=== PATIENT | male | born 1955 | race Caucasian/White ===

== ENCOUNTER 2017-02-08 19:39 | Inpatient (IN) | payer OTHER ==
[~2017-02-08] VITALS: Ht 167.6 cm; Wt 66.7 kg
--- NOTE | ~2017-02-08 | CNG ---
[facility] [place] [address] CYTO-NONGYN REPORT PROCEDURE Name: MARY NAVARRO Room #: 236-P ADM IN M.R.#: [id number] Admission: 02/08/17 Date of : 55 Discharge: Report #: [id number] Path Case #: [id number] CYTOPATHOLOGY REPORT COLLECTION DATE: 02/10/2017 RECEIVED DATE: 02/10/2017 SUBMITTING PHYS: Dr. Mago Jolly OTHER PHYS: Dr. Suman Friend CLINICAL HISTORY: Complete heart block, Alveolar hemorrhage. SPECIMEN(S) RECEIVED: A.Bronchoalveolar lavage, RML B.Bronchoalveolar lavage, Lingula * * * * * * * * * * * * FINAL DIAGNOSIS: A. Lung, RML, Bronchoalveolar lavage: - No malignant cells identified. - Few bronchial epithelial cells, alveolar macrophages, and squamous cells present. B. Lung, Lingula, Bronchoalveolar lavage: - No malignant cells identified. - Clusters of bronchial epithelial cells, alveolar macrophages, and squamous cells present. PATHOLOGIST: Giovana Lemons M.D. REPORT ELECTRONICALLY SIGNED BY: Giovana Lemons M.D. DATE/TIME: 02/11/2017 15:01 * * * * * * * * * * * * GROSS PATHOLOGY: A. Bronchoalveolar lavage, RML: The specimen is submitted unfixed, labeled "Mary Navarro". Received by the Cytology Department is 3 mL of cloudy fluid. One ThinPrep slide was prepared. B. Bronchoalveolar lavage, Lingula: The specimen is submitted unfixed, labeled "Mary Navarro". Received by the Cytology Department is 2 mL of cloudy fluid. One ThinPrep slide was prepared. (clt 02.10.2017) FINANCIAL ANALYST ACCOUNTANT(S): DYLAN Colon(ASCP)IAC INITIAL CPT CODE(S): A; 04498 B; 21536 Professional [facility] performed by [facility] at [address], [place] [address] [place] [address] CYTO-NONGYN REPORT PROCEDURE Name: MARY NAVARRO Room #: 236-P ADM IN M.R.#: [id number] Admission: 02/08/17 Date of : 55 Discharge: Report #: [id number] Path Case #: [id number] Technical services performed by [facility] at [address] [place] [address]., [address], [place] [address]. [address], [facility] [address] [place] [address] PHONE: [phone] DIRECTOR: Kevin Gannon M.D. * * * END OF REPORT * * *
--- NOTE | ~2017-02-08 | CATHLAB ---
[facility] [address] [address] INVASIVE PROCEDURE REPORT Name: MARY NAVARRO Room #: 236-P [facility] IN ..#: [id number] Admission: 02/08/17 Attend Phys: Altagracia Friend Discharge: Date of : 55 Date of Service: 02/09/17 0157 Report #: [id number] THIS REPORT FOR: //name// CC: Demetri Jolly DATE OF SERVICE: 02/08/2017 INDICATION: A 61-year-old male patient with congestive heart failure and complete heart block with bradycardia. PROCEDURES: Temporary transvenous pacemaker insertion under fluoroscopic visualization. MANAGER ENVIRONMENTAL: Demetri Salcedo M.D. BRIEF DESCRIPTION OF PROCEDURE: After informed consent was obtained from the family, the patient was brought to the cardiac catheterization laboratory in stable condition. He was intubated and respiratory was on hand managing ventilator. The right groin was prepped and draped in the usual sterile manner. Utilizing technique after instillation of local in the entry point, the right femoral vein was accessed and an 8-Danish sheath was positioned in place. A 5-Danish balloon tip and venous pacer wire was then advanced under fluoroscopic visualization into the right ventricular apex. Enough slack was placed on it to secure its location. At this point in time, thresholds were obtained with a captured threshold at 0.6 volts. Sheath was sewn in place, OpSite placed to secure it in position. Fluoroscopy was then performed to document positioning. OpSite was then utilized to secure device further. FINAL SETTINGS: 1. demand mode. 2. Heart rate of 80. 3. MA 5 volts. 4. Rhythm post-insertion: 100% V paced. <ELECTRONICALLY SIGNED> By: Demetri Salcedo MD 02/09/17 1642 0157 1235 Demetri Salcedo MD /nt
--- NOTE | ~2017-02-08 | EKG ---
[address] [address] ELECTROCARDIOGRAM REPORT Name: MARY NAVARRO Room #: 236-[facility] IN M.R.#: [id number] Admission: 02/08/17 Attend Phys: Altagracia Friend MD Discharge: 02/12/17 Date of : 55 Report #: [id number] THIS REPORT FOR: //name// [facility] Test Date: 2017-02-12 Test Time: 07:40:02 Pat Name: MARY NAVARRO Department: Room: 236 Gender: M Customs Guard: anat : 1955 Requested By: Larry Suarez Order Number: [id number] MD: Jean Chacon Measurements Intervals [place] Rate: 61 P: 91 UT: 244 QRS: 52 QRSD: 164 T: -52 QT: 482 QTc: 486 Interpretive Statements Sinus rhythm with first degree AV block Left bundle branch block No further analysis attempted due to paced rhythm Compared to ECG 02/08/2017 19:52:43 AV block, complete (third-degree) no longer present Electronically Signed On 02-13-2017 14:59:19 CDT by Jean Chacon [email or web address] <ELECTRONICALLY SIGNED> By: Jean Chacon MD, [facility] 02/13/17 1459 0740 Jean Chacon MD, [facility] /EPI
--- NOTE | ~2017-02-08 | 2DMMODE ---
[facility] [address] [place] [address] 2 D/M-MODE ECHOCARDIOGRAM Name: MARY NAVARRO Room #: 236-P ADM IN .R.#: [id number] Admission: 02/08/17 Attend Phys: Suman Kelly, Discharge: Date of : 55 Date of Service: 02/09/17 0008 Report #: [id number] THIS REPORT FOR: //name// APPROVED REPORT Study performed: 02/08/2017 23:28:24 EXAM: Limited 2D, Doppler, and color-flow Echocardiogram Patient Location: ER Room #: 7/Call back/STAT HR: 33 bpm Rhythm: Heart block Other Information Study Quality: Adequate Indications Limited echo. Heart block. Short of air. Rule out pericardial effusion. Tricuspid Valve TR Peak Masoud.: 4.31 m/s RAP Estimate: 10.00 mmHg TR Peak Gr.: 74.29 mmHg RVSP: 84.00 mmHg Left Ventricle The left ventricle is normal size. There is normal LV segmental wall motion. There is normal left ventricular wall thickness. Left ventricular systolic function is normal. LVEF is 55-60%. Right Ventricle Right ventricle is difficult to assess. Aortic Valve The aortic valve is normal in structure. Trace aortic regurgitation. Mitral Valve The mitral valve is normal in structure. Moderate mitral regurgitation. Tricuspid Valve The tricuspid valve is normal in structure. There is moderate tricuspid regurgitation. The right atrial pressure is estimated at 10 [facility] [address] [place] [address] 2 D/M-MODE ECHOCARDIOGRAM Name: MARY NAVARRO Room #: 236-P ADM IN M.R.#: [id number] Admission: 02/08/17 Attend Phys: Suman Kelly, Discharge: Date of : 55 Date of Service: 02/09/177 Report #: [id number]. There is severe pulmonary hypertension with an estimated PAP of 84mmHg. Great Vessels IVC is dilated and collapses <50% with inspiration. Pericardium There is no pericardial effusion. <Conclusion> The left ventricle is normal size. LVEF is 55-60%. Right ventricle is difficult to assess. The aortic valve is normal in structure. Trace aortic regurgitation. The mitral valve is normal in structure. The tricuspid valve is normal in structure. There is moderate tricuspid regurgitation. The right atrial pressure is estimated at 10 mmHg. There is severe pulmonary hypertension with an estimated PAP of 84mmHg. <ELECTRONICALLY SIGNED> By: Demetri Salcedo MD 02/09/177 Demetri Salcedo MD /INF
--- NOTE | ~2017-02-08 | CATHLAB ---
[facility] [address] [place] [address] INVASIVE PROCEDURE REPORT Name: MARY NAVARRO Room #: 236-P [facility] IN [facility]#: [id number] Admission: 02/08/17 Attend Phys: Altagracia Friend Discharge: 02/12/17 Date of : 55 Date of Service: 02/14/17 1015 Report #: [id number] THIS REPORT FOR: //name// CC: Demetri Jolly DATE OF SERVICE: 02/11/2017 PERMANENT PACEMAKER IMPLANTATION REPORT INDICATIONS: A 61-year-old male patient with complete heart block and symptoms of fatigue, tiredness and congestive heart failure. PROCEDURES: 1. Implantation of [employer] dual-chamber pacemaker. (Serial number identified in the catheterization report). 2. Supervision of conscious sedation. ASSOCIATE PROFESSOR OF PATHOLOGY: Demetri Salcedo M.D. DESCRIPTION OF PROCEDURE: After informed consent was obtained, the patient was brought to the cardiac catheterization laboratory in stable condition. The chest was prepped and draped in usual sterile manner. Under continuous electrocardiographic and oximetric monitoring, the patient was sedated with 4 Versed and 25 of Demerol. An incision was then carried forth with an 11 blade and a pocket was developed with both sharp and blunt dissection. Cauterization was utilized to deal with bleeders. Once the pocket was developed a subclavian vein access was obtained via single stick methods. Sheaths were placed, leads were advanced. Subsequent to this, the sheaths were removed and anchoring sutures were placed. The leads were then positioned in the left ventricular septum where capture and sensing thresholds were verified and were excellent. The atrial lead was then placed in the right atrial appendage and both leads were screwed in. Capture and sensing threshold in the atrium was excellent with arteries greater than 2. The device was then connected pocket device. Chest was irrigated with antibiotic solution. Closure then ensued with a running locking nonabsorbable suture for the 2 deep fascial layers and the skin was closed with a 3-0 absorbable running subcuticular stitch. Steri-Strips, 4 x 4's Op-Site were then placed. The patient tolerated the procedure well. There were no complications. <ELECTRONICALLY SIGNED> By: Demetri Salcedo MD 02/15/17 1258 1015 2311 Demetri Salcedo MD /nt
--- NOTE | ~2017-02-08 | EKG ---
[address] [address] ELECTROCARDIOGRAM REPORT Name: MELANIEMARY Room #: 236-P ADM IN M.R.#: [id number] Admission: 02/08/17 Attend Phys: Altagracia Friend MD Discharge: Date of : 55 Report #: [id number] THIS REPORT FOR: //name// [facility] ED Test Date: 2017-02-08 Test Time: 19:52:43 Pat Name: MARY NAVARRO Department: Room: 236 Gender: M [employer] Department Chair: CORDELL : 1955 Requested By: Megan Mccann Order Number: [id number] MD: Jean Chacon Measurements Intervals [place] Rate: 42 P: 0 ME: QRS: -35 QRSD: 152 T: 61 QT: 602 QTc: 504 Interpretive Statements Complete AV block with wide QRS complex Left bundle branch block No previous ECG available for comparison Electronically Signed On 02-09-2017 9:24:38 CDT by Jean Chacon [email or web address] <ELECTRONICALLY SIGNED> By: Jean Chacon MD, [facility] 02/09/17923 51 51 Jean Chacon MD, FACC /EPI
[2017-02-08 19:47] VITALS: BP 157/48
[2017-02-08] MEDS ORDERED: calcium complete (20:05)
[2017-02-08] MEDS ORDERED: CENTRUM SILVER1 EAC2 PO (20:05)
[2017-02-08] MEDS ORDERED: ZINC 15 MG LOZE15 MG (20:05)
[2017-02-08] MEDS ORDERED: ASPIR 8181 MG PO (20:05)
[2017-02-08] MEDS ORDERED: [UNRECOGNIZED DRUG - OTHER] (20:06)
[2017-02-08] MEDS ORDERED: OMEGA-31000 M1 PO (20:06)
[2017-02-08] MEDS ORDERED: LIPITOR10 MG PO (20:07)
[2017-02-08 20:31] LABS: ANION GAP 12 mmol/L (7-16); BUN 22 mg/dL (7-18); CALCIUM 8.6 mg/dL (8.5-10.1); CHLORIDE 102 mmol/L (98-107); CO2 24 mmol/L (21-32); CREATININE 1.3 mg/dL (0.7-1.3); GLUCOSE 116 mg/dL (74-106); POTASSIUM 4.4 mmol/L (3.5-5.1); SODIUM 138 mmol/L (136-145)
[2017-02-08 20:34] LABS: ABSOLUTE NEUTROPHILS 9.3 thou/uL (1.4-8.2); BASOPHILS 0.4 % (0.0-2.0); HEMOGLOBIN 13.7 gm/dL (14.0-18.0); MCH 30.7 pg (26.0-34.0); MCHC 33.5 g/dL (28.0-37.0); MCV 91.6 fL (80.0-100.0); MONOCYTES 7.3 % (1.0-8.0); POLYS 78.3 % (36.0-66.0); RBC 4.48 mil/uL (4.50-6.00); RDW 13.4 % (10.5-14.5); WBC 11.9 thou/uL (4.0-11.0)
[2017-02-08 20:44] LABS: MAGNESIUM 1.7 mg/dL (1.8-2.4); NT-PRO BRAIN NAT PEPTIDE 5138 pg/mL (<300); TROPONIN-I < 0.04 ng/mL (<0.04-0.07)
[2017-02-08 20:48] LABS: MANUAL DIFF NO
[2017-02-08 22:16] LABS: ABG SAMPLE TYPE ARTERIAL; BE(vivo) -5.1 mmol/L (-2 to +3); HCO3 17.8 mmol/L (22.0-26.0); LACTATE 2.16 mmol/L (0.5-2.0); O2Hb 90.9 % (92.0-98.0); PCO2 27.5 mmHg (35.0-45.0); PO2 63.7 mmHg (80.0-100.0); pH 7.428 (7.360-7.450); sO2 93.3 % (92.0-98.0); tCO2 18.6 mmol/L (24.0-30.0)
[2017-02-08 22:18] LABS: STICK SITE R.RADIAL
[2017-02-08 22:25] LABS: APTT 26.9 Seconds (24.5-32.8); INR 1.1; PROTIME 11.9 Seconds (9.3-11.4)
[2017-02-08 22:50] LABS: PLATELET COUNT 131 thou/uL (150-400)
[2017-02-08 22:51] LABS: LARGE PLATELETS OCCASIONAL; POLYCHROMASIA OCCASIONAL
[2017-02-08 23:48] VITALS: BP 96/24
[2017-02-09] VITALS (57 sets, daily range): BP systolic 81–156; BP diastolic 16–90
[2017-02-09 03:45] LABS: ABSOLUTE NEUTROPHILS 6.1 thou/uL (1.4-8.2); BASOPHILS 0.3 % (0.0-2.0); EOSINOPHILS 0.4 % (0.0-3.0); HEMATOCRIT 37.8 % (42.0-52.0); HEMOGLOBIN 12.9 gm/dL (14.0-18.0); LYMPHOCYTES 17.6 % (24.0-44.0); MCH 31.4 pg (26.0-34.0); MCHC 34.2 g/dL (28.0-37.0); MCV 91.6 fL (80.0-100.0); MONOCYTES 10.7 % (1.0-8.0); PLATELET COUNT 113 thou/uL (150-400); RBC 4.12 mil/uL (4.50-6.00); RDW 13.4 % (10.5-14.5); WBC 8.6 thou/uL (4.0-11.0)
[2017-02-09 03:56] LABS: MANUAL DIFF NO
[2017-02-09 04:14] LABS: ALBUMIN 2.7 g/dL (3.4-5.0); ALKALINE PHOSPHATASE 71 U/L (46-116); ANION GAP 12 mmol/L (7-16); BUN 22 mg/dL (7-18); CALCIUM 7.9 mg/dL (8.5-10.1); CHLORIDE 106 mmol/L (98-107); CHOLESTEROL 123 mg/dL (<200); CO2 22 mmol/L (21-32); CREATININE 1.1 mg/dL (0.7-1.3); GLUCOSE 121 mg/dL (74-106); HDL CHOLESTEROL 25 mg/dL (>40); LDL CHOLESTEROL 68 mg/dL (<100); MAGNESIUM 1.8 mg/dL (1.8-2.4); NT-PRO BRAIN NAT PEPTIDE 5545 pg/mL (<300); SGOT 27 U/L (15-37); SGPT 42 U/L (30-65); SODIUM 140 mmol/L (136-145); TC:HDL 4.9 Ratio (Not establshd); TOTAL BILIRUBIN 1.1 mg/dL (<0.1-1.0); TOTAL PROTEIN 6.6 g/dL (6.4-8.2); TRIGLYCERIDE 154 mg/dL (<150); VLDL 31 mg/dL (<40)
[2017-02-09 05:16] LABS: ABG SAMPLE TYPE ARTERIAL; BE(vivo) -3.1 mmol/L (-2 to +3); HCO3 20.2 mmol/L (22.0-26.0); LACTATE 1.03 mmol/L (0.5-2.0); O2(CT) 18.5 mL/dL (15.0-23.0); O2Hb 98.3 % (92.0-98.0); PCO2 30.9 mmHg (35.0-45.0); PO2 371.5 mmHg (80.0-100.0); STICK SITE R.RADIAL; pH 7.433 (7.360-7.450); sO2 99.8 % (92.0-98.0); tCO2 21.1 mmol/L (24.0-30.0)
[2017-02-09 05:17] LABS: TIDAL VOLUME 550 ml
[2017-02-09 12:26] LABS: URINE BILIRUBIN NEGATIVE (Negative); URINE BLOOD NEGATIVE (Negative); URINE COLOR YELLOW; URINE GLUCOSE-RANDOM* NEGATIVE (Negative); URINE KETONES NEGATIVE (Negative); URINE LEUKOCYTES-REFLEX 1+ (Negative); URINE PROTEIN (DIPSTICK) NEGATIVE (Negative); URINE UROBILINOGEN 0.2 E.U./dl (0.2-1.0)
[2017-02-09 12:34] LABS: SQUAMOUS 0-3 Few /LPF (0-3)
[2017-02-09 12:35] LABS: CASTS None Seen /LPF (None Seen); CRYSTALS None Seen /LPF (None Seen); URINE RBC 0-2 Rare /HPF (0-2); URINE WBC-REFLEX 6-15 Few /HPF (0-5)
[2017-02-09 13:39] LABS: ABG COMMENT CPAP TRIAL; ABG SAMPLE TYPE ARTERIAL; BE(vivo) -2.2 mmol/L (-2 to +3); HCO3 21.1 mmol/L (22.0-26.0); LACTATE 1.43 mmol/L (0.5-2.0); O2(CT) 18.7 mL/dL (15.0-23.0); O2Hb 97.1 % (92.0-98.0); PO2 108.8 mmHg (80.0-100.0); Pressure Support 6 cm H20; STICK SITE R.RADIAL; pH 7.437 (7.360-7.450); sO2 98.2 % (92.0-98.0); tCO2 22.1 mmol/L (24.0-30.0)
[2017-02-10] VITALS (16 sets, daily range): BP systolic 105–139; BP diastolic 41–94
[2017-02-10 04:11] LABS: CK TOTAL 110 U/L (24-204)
[2017-02-10 04:20] LABS: BASOPHILS 0.1 % (0.0-2.0); HEMATOCRIT 35.7 % (42.0-52.0); HEMOGLOBIN 12.2 gm/dL (14.0-18.0); MCH 31.3 pg (26.0-34.0); MCHC 34.1 g/dL (28.0-37.0); MCV 91.8 fL (80.0-100.0); MONOCYTES 6.7 % (1.0-8.0); PLATELET COUNT 123 thou/uL (150-400); POLYS 83.2 % (36.0-66.0); RBC 3.88 mil/uL (4.50-6.00); RDW 13.3 % (10.5-14.5); WBC 9.7 thou/uL (4.0-11.0)
[2017-02-10 04:27] LABS: MANUAL DIFF NO
[2017-02-10 04:36] LABS: CALCIUM 7.6 mg/dL (8.5-10.1); CREATININE 0.9 mg/dL (0.7-1.3); POTASSIUM 4.1 mmol/L (3.5-5.1)
[2017-02-10 17:10] LABS: CPK BB (%) 0 % (0); CPK MB (%) 0 % (0-3); CPK MM (%) 100 % (97-100)
[2017-02-11] VITALS (21 sets, daily range): BP systolic 118–149; BP diastolic 57–81
[2017-02-11 04:28] LABS: HEMATOCRIT 36.3 % (42.0-52.0); HEMOGLOBIN 12.4 gm/dL (14.0-18.0); MCH 31.4 pg (26.0-34.0); MCHC 34.2 g/dL (28.0-37.0); MCV 91.9 fL (80.0-100.0); PLATELET COUNT 121 thou/uL (150-400); RBC 3.95 mil/uL (4.50-6.00); RDW 13.6 % (10.5-14.5); WBC 9.4 thou/uL (4.0-11.0)
[2017-02-11 04:35] LABS: MANUAL DIFF YES
[2017-02-11 04:39] LABS: CALCIUM 8.1 mg/dL (8.5-10.1); CREATININE 0.9 mg/dL (0.7-1.3); POTASSIUM 4.3 mmol/L (3.5-5.1)
[2017-02-11 06:33] LABS: TOTAL CELL COUNT 100
[2017-02-12] VITALS (14 sets, daily range): BP systolic 118–157; BP diastolic 55–84
[2017-02-12 06:10] LABS: LEGIONELLA PNEUMO PCR RESULT Not Detected (()); LEGIONELLA SPECIES PCR Not Detected (())
[2017-02-12] MEDS ORDERED: POTASSIUM20 PO (11:15)
[2017-02-12] MEDS ORDERED: LASIX 40 MG TAB40 M2 PO (11:15)
[2017-02-12] MEDS ORDERED: LEVAQUIN 750 M750 MG PO (11:29)
== END 2017-02-12 12:20 | disposition home or self-care (01) | DRG 242 ==
LOC: ER 19:39 → ICU 22:56 → EROBS 22:56 → ICU 23:53
PROVIDERS: Emergency Medicine; Internal Medicine; Internal Medicine Endocrinology, Diabetes & Metabolism; Internal Medicine Pulmonary Disease; Nurse Practitioner
PROC: 5A1223Z Performance of Cardiac Pacing, Continuous (ICD-10-PCS; 2017-02-08)
PROC: 0BH17EZ Insertion of Endotracheal Airway into Trachea, Via Natural or Artificial Opening (ICD-10-PCS; principal; 2017-02-09)
PROC: 5A1935Z Respiratory Ventilation, Less than 24 Consecutive Hours (ICD-10-PCS; principal; 2017-02-09)
PROC: 0B9H8ZX Drainage of Lung Lingula, Via Natural or Artificial Opening Endoscopic, Diagnostic (ICD-10-PCS; 2017-02-09)
PROC: 0B9D8ZX Drainage of Right Middle Lung Lobe, Via Natural or Artificial Opening Endoscopic, Diagnostic (ICD-10-PCS; 2017-02-09)
PROC: 0JH606Z Insertion of Pacemaker, Dual Chamber into Chest Subcutaneous Tissue and Fascia, Open Approach (ICD-10-PCS; 2017-02-11)
PROC: 02HL3JZ Insertion of Pacemaker Lead into Left Ventricle, Percutaneous Approach (ICD-10-PCS; 2017-02-11)
PROC: 02H63JZ Insertion of Pacemaker Lead into Right Atrium, Percutaneous Approach (ICD-10-PCS; 2017-02-11)
DX: I44.2 Atrioventricular block, complete (principal); J96.00 Acute respiratory failure, unspecified whether with hypoxia or hypercapnia; I50.9 Heart failure, unspecified; E78.00 Pure hypercholesterolemia, unspecified; F17.210 Nicotine dependence, cigarettes, uncomplicated; D72.829 Elevated white blood cell count, unspecified; E83.42 Hypomagnesemia; I25.10 Atherosclerotic heart disease of native coronary artery without angina pectoris; E78.5 Hyperlipidemia, unspecified; I27.2 Other secondary pulmonary hypertension; Z88.1 Allergy status to other antibiotic agents; Z88.8 Allergy status to other drugs, medicaments and biological substances; Z95.5 Presence of coronary angioplasty implant and graft
CPT/HCPCS: 10078

== ENCOUNTER → 2018-08-04 | Outpatient (CLI) | payer OTHER ==
[~2018-08-04] MED LIST: ASPIR 8181 MG PO; CENTRUM SILVER1 EAC2 PO; LASIX 40 MG TAB40 M2 PO; LEVAQUIN 750 M750 MG PO; LIPITOR10 MG PO; OMEGA-31000 M1 PO; POTASSIUM20 PO; ZINC 15 MG LOZE15 MG; [UNRECOGNIZED DRUG - OTHER]; calcium complete
== END ==
LOC: NUC 07:33
DX: I25.10 Atherosclerotic heart disease of native coronary artery without angina pectoris (principal)

== ENCOUNTER → 2019-12-24 | Outpatient (CLI) | payer OTHER | LOC: SJCVCIMAG 06:39 | DX: Z01.810 Encounter for preprocedural cardiovascular examination (principal); I45.2 Bifascicular block; I65.23 Occlusion and stenosis of bilateral carotid arteries; I71.4 Abdominal aortic aneurysm, without rupture; R53.83 Other fatigue; I10 Essential (primary) hypertension; Z79.82 Long term (current) use of aspirin; Z79.899 Other long term (current) drug therapy; Z98.890 Other specified postprocedural states ==

== ENCOUNTER → 2019-12-31 | Outpatient (CLI) | payer OTHER ==
[2019-12-31 11:09] LABS: CREATININE 0.9 mg/dL (0.7-1.3)
== END ==
LOC: SJCVCIMAG 10:04 → CAT 10:04 → SJCVCIMAG 16:43
PROVIDERS: Internal Medicine
DX: I08.3 Combined rheumatic disorders of mitral, aortic and tricuspid valves (principal); N42.89 Other specified disorders of prostate; I73.9 Peripheral vascular disease, unspecified; I71.4 Abdominal aortic aneurysm, without rupture; M47.815 Spondylosis without myelopathy or radiculopathy, thoracolumbar region; R16.1 Splenomegaly, not elsewhere classified

== ENCOUNTER → 2020-01-30 | Outpatient (CLI) | payer OTHER ==
[~2020-01-30] VITALS: Ht 165.1 cm; Wt 60.8 kg
[~2020-01-30] MED LIST changes: +FUROSEMIDE 40 M40 MG PO; +ISOSORBIDE MONO30 M1 PO; +LEXAPRO 10 MG T10 M1 PO; +LEXAPRO20 MG PO; +MELOXICAM15 MG PO; +METHOCARBAMOL500 M2 PO; +NICOTINE LOZENGE2 MG BUCCAL; +RAPAFLO8 MG PO; +ROBAXIN 750 MG750 MG PO; +VITAMIN D350 MC1 PO; -ZINC 15 MG LOZE15 MG; +ZINC 15 MG LOZE15 MG PO
[2020-01-30 07:46] VITALS: BP 106/49
[2020-01-30 07:58] LABS: ABSOLUTE NEUTROPHILS 3.9 thou/uL (1.4-8.2); BASOPHILS 0.3 % (0.0-2.0); EOSINOPHILS 5.3 % (0.0-3.0); HEMATOCRIT 45.2 % (42.0-52.0); HEMOGLOBIN 15.4 gm/dL (14.0-18.0); LYMPHOCYTES 35.1 % (24.0-44.0); MCH 31.5 pg (26.0-34.0); MCHC 34.1 g/dL (28.0-37.0); MCV 92.3 fL (80.0-100.0); MONOCYTES 6.5 % (1.0-8.0); PLATELET COUNT 151 thou/uL (150-400); POLYS 52.8 % (36.0-66.0); RBC 4.89 mil/uL (4.50-6.00); RDW 13.5 % (10.5-14.5); WBC 7.3 thou/uL (4.0-11.0)
[2020-01-30 08:02] LABS: CALCIUM 9.5 mg/dL (8.5-10.1); CREATININE 1.1 mg/dL (0.7-1.3); POTASSIUM 4.1 mmol/L (3.5-5.1)
--- NOTE | 2020-01-30 09:32 | EKG ---
[facility] [place] [address] ELECTROCARDIOGRAM REPORT Name: MARY NAVARRO [id number] Admission: 01/30/20 Attend Phys: Demetri Salcedo Discharge: Date of : 55 Report #: [id number] THIS REPORT FOR: cc: DAVIAN MAR Physician not on staff Jean Chacon MD [facility] ~ THIS REPORT FOR: //name// [facility] Test Date: 2020-01-30 Test Time: 07:45:11 Pat Name: MARY NAVARRO Department: Room: Gender: Manager Housekeeping: Betty VAZQUEZ : 1955 Requested By: Demetri Salcedo Order Number: [id number] MD: Jean Chacon Measurements Intervals [place] Rate: 66 P: 43 [place]: 149 QRS: -69 QRSD: 154 T: 25 QT: 439 QTc: 460 Interpretive Statements Sinus rhythm RBBB and LAFB Probable left ventricular hypertrophy Compared to ECG 02/12/2017 07:40:02 Left anterior fascicular block now present Ventricular-paced complex(es) or rhythm no longer present Electronically Signed On 01-30-2020 9:31:28 CDT by Jean Chacon [email or web address] <ELECTRONICALLY SIGNED> By: Jean Chacon MD, FAC 01/30/20 0931 0745 0745 Jean Chacon MD, FAC /EPI
[2020-01-30 11:54] LABS: URINE BILIRUBIN NEGATIVE (Negative); URINE BLOOD NEGATIVE (Negative); URINE CLARITY CLEAR; URINE COLOR YELLOW; URINE GLUCOSE-RANDOM* NEGATIVE (Negative); URINE KETONES NEGATIVE (Negative); URINE LEUKOCYTES-REFLEX NEGATIVE (Negative); URINE NITRITE-REFLEX NEGATIVE (Negative); URINE PROTEIN (DIPSTICK) NEGATIVE (Negative); URINE UROBILINOGEN 0.2 E.U./dl (0.2-1.0)
[2020-01-30 13:00] LABS: ABSOLUTE NEUTROPHILS 5.6 thou/uL (1.4-8.2); BASOPHILS 0.3 % (0.0-2.0); EOSINOPHILS 4.1 % (0.0-3.0); HEMATOCRIT 41.3 % (42.0-52.0); HEMOGLOBIN 14.2 gm/dL (14.0-18.0); LYMPHOCYTES 26.6 % (24.0-44.0); MCH 31.8 pg (26.0-34.0); MCHC 34.4 g/dL (28.0-37.0); MCV 92.6 fL (80.0-100.0); MONOCYTES 4.4 % (1.0-8.0); PLATELET COUNT 143 thou/uL (150-400); POLYS 64.6 % (36.0-66.0); RBC 4.46 mil/uL (4.50-6.00); RDW 13.6 % (10.5-14.5); WBC 8.7 thou/uL (4.0-11.0)
[2020-01-30 13:16] LABS: ALBUMIN 3.3 g/dL (3.4-5.0); CALCIUM 8.2 mg/dL (8.5-10.1); TOTAL BILIRUBIN 0.5 mg/dL (<0.1-1.0); TOTAL PROTEIN 6.7 g/dL (6.4-8.2)
[2020-01-30 13:39] LABS: APTT 27.1 Seconds (24.5-32.8); INR 1.1; PROTIME 11.1 Seconds (9.3-11.4)
--- NOTE | 2020-02-01 07:58 | HC ---
[facility] [place] [address] CONSULTATION Name: MARY NAVARRO [id number] Admission: 01/30/20 Attend Phys: Demetri Salcedo Discharge: Date of : 55 Report #: [id number] THIS REPORT FOR: cc: DAVIAN MAR Physician not on staff Spencer Pablo MD ~ CC: Demetri Salcedo Physician staff DAVIAN MAR DATE OF SERVICE: 01/30/2020 We were asked to see the patient by Dr. Malhotra. HISTORY OF PRESENT ILLNESS: The patient is a 64-year-old with an abdominal aortic aneurysm. The patient has a history of aortoiliac stent placement for arterial occlusive disease approximately 10 years ago. Followup of this reveals that an aneurysm was developed just above the bifurcation and involving the stents at some level anatomically. There was also another component of dilatation just below the renal artery takeoffs. PAST MEDICAL HISTORY: Significant for hypertension, longtime tobacco use, peripheral arterial occlusive disease. MEDICATIONS AT HOME: Includes aspirin, atorvastatin, calcium, vitamin D, Lexapro, Lasix, Robaxin, fish oil, silodosin, zinc and omega-3 fatty acids. ALLERGIES: THE PATIENT STATES HE HAS A GI INTOLERANCE TO PENICILLIN. REVIEW OF SYSTEMS: CONSTITUTIONAL: Denies fever, fatigue, weight change. EYES: Denies vision change. HEENT: Denies headache, earache, nasal discharge or sore throat. RESPIRATORY: Denies shortness of breath or cough. CARDIAC: Denies chest pain or palpitations. GASTROINTESTINAL: Denies nausea, vomiting or blood. GENITOURINARY: Denies urgency, frequency or blood. MUSCULOSKELETAL: Does have some leg pain with walking that he ascribes to back problems. SKIN: No rash or infection. NEUROLOGIC: No motor or sensory dysfunction. ENDOCRINE: No goiter, no tremor. PHYSICAL EXAMINATION: [facility] [address] [place] [address] CONSULTATION Name: MARY NAVARRO Room #: REG CLI [facility].#: [id number] Admission: 01/30/20 Attend Phys: Demetri Salcedo Discharge: Date of : 55 Report #: [id number] VITAL SIGNS: Blood pressure 110/70, heart rate 80. GENERAL: The patient is lying in bed after cardiac and peripheral cath, seems comfortable. HEENT: No scleral icterus, no arcus. NECK: No mass, no bruit. CHEST: Clear to auscultation. HEART: Rhythm regular. ABDOMEN: Soft, no mass. EXTREMITIES: No clubbing, cyanosis or edema. VASCULAR: 2+ right dorsalis pedis pulse, I do not feel left dorsalis pedis, 2+ left femoral pulse, right femoral was accessed with the catheter. SKIN: No rash or infection. NEUROLOGIC: No motor or sensory dysfunction. MUSCULOSKELETAL: No bone or joint asymmetry or deformity. I reviewed the findings of the abdominal aneurysm with the patient. I have discussed risks and details of stent graft implant. Risks include but are not limited to bleeding, infection, anesthesia risks. Options and alternatives were reviewed. The patient understands all this and wishes to proceed. We will try to arrange a date for elective surgery. Thank you for the consult. <ELECTRONICALLY SIGNED> By: Spencer Pablo MD 02/01/20 0758 1108 1232 Spencer Pablo MD /nt
--- NOTE | 2020-02-05 14:19 | CATHLAB ---
[facility] [place] [address] INVASIVE PROCEDURE REPORT Name: MARY NAVARRO Room #: REG MICA CuiKarlosMichaela.#: [id number] Admission: 01/30/20 Attend Phys: Demetri Salcedo Discharge: Date of : 55 Report #: [id number] THIS REPORT FOR: cc: DAVIAN MAR Physician not on staff Demetri Salcedo MD ~ APPROVED REPORT Study performed: 01/30/2020 09:39:19 Patient Details Patient Status: Out-Patient Room #: The patient is a 64 year-old male Event Personnel Demetri Salcedo Manufacturing Management Associate, China Berumen RTR, GUN PERFORATOR LOADER Monitor, Zabrina Strauss RN RN, Amalia Galvan Procedures Performed Art Access - R femoral artery* Left Heart Cath w/or w/o Coronaries 9930211 [facility] [address] Initial Mod Sed Same Phys/QHP Gr5y 229490 Hemostasis w/ Mynx, Supervision of conscious sedation Indication Positive stress test, Chest pain Procedure Narrative A 7F 11CM BRITE-TIP sheath was inserted into the RFA^. Coronary angiography was performed using coronary diagnostic catheters. The right coronary system was accessed and visualized with a JR4 catheter. The left coronary system was accessed and visualized with a JL4 catheter. The left ventricle was accessed and visualized with a angled pigtail catheter. Left ventricular/Aortic Valve gradient assessed via catheter pullback. Closure device was deployed with a 7 Fr MYNXGRIP 6/7F 106165. The patient tolerated the procedure well and there were no complications associated with the procedure. There was no hematoma. Intraoperative Conscious Sedation Sedation start time: 09:36 Case end Time: 10:06 Versed 1 mg [facility] [address] [place] [address] INVASIVE PROCEDURE REPORT Name: MARY NAVARRO Room #: REG CL [facility].#: [id number] Admission: 01/30/20 Attend Phys: Demetri Roldan Discharge: Date of : 55 Report #: [id number] Conscious sedation was only used for left heart cath. Fluoro time and dose is a combined total for lower extremity runoff and left heart cath procedures. Omnipaque used for left heart cath-50ml. Visipaque was used for the lower extremity runoff. Fluoro Time: 12.62 minutes Dose: DAP 70196.40 cGycm2 1112.9 mGy Contrast Type and Amount: Visipaque 117 ml Coronary Angiography The patient's coronary anatomy is right dominant. Diagnostic Cath Left Main Normal origin small caliber bifurcates left anterior descending left circumflex. There is mild irregularities noted. No high-grade obstructive lesion LAD Small-caliber type II vessel which courses in the anterior interventricular sulcus giving rise to septal and diagonal branches. After the first diagonal the vessel proper is much smaller and has irregularities of under 30% throughout its course. There is 1. in the mid LAD there appears to have a 50% eccentric lesion but it is not flow-limiting Diagonal 1 Small-caliber vessel coursing on the anterolateral wall with luminal irregularities of under 30% noted. No significant obstructive lesions present Circumflex Moderate to small caliber vessel coursing in the AV groove gives rise to small caliber marginal branch and then terminates in the posterior wall branches free of high-grade disease. Irregularities are under 20% and are noted throughout the vessel. OM1 Small-caliber vessel coursing along the lateral aspect of the heart without significant high-grade lesions noted Right Coronary Moderate caliber dominant vessel of normal origin proceeds in the AV groove giving rise to small right atrial and right ventricular branches. And continues to the crux of the hardware small-caliber posterior descending artery arises and then terminates as a small posterolateral wall branch. The mild irregularities in the proximal portion of the vessel but no high-grade obstructive lesions R PDA Small-caliber vessel without significant obstructive lesions noted Left Ventriculography Left Ventriculography was not performed. [address] [address] INVASIVE PROCEDURE REPORT Name: [place]AM[place],MARY CAPRICE Room #: REG M.R.#: [id number] Admission: 01/30/20 Attend Phys: Demetri Roldan Discharge: Date of : 55 Report #: [id number] Hemodynamics The aortic pressure is 134/68 mmHg with a mean of 94 mmHg. The left ventricular pressure is 139/4 mmHg with a mean of mmHg. The left ventricular end diastolic pressure is 36 mmHg. Conclusion 1. Mild coronary artery disease involving 3 major epicardial coronary vessels 2. Fluoroscopic evidence of epicardial coronary artery calcifications 3. Normal hemodynamics Recommendations Cardiac Risk Reduction Program Medical Therapy <ELECTRONICALLY SIGNED> By: Demetri Salcedo MD 02/05/20 1417 141 141 Demetri Salcedo MD /INF
== END | disposition home or self-care (01) ==
LOC: CATH 01-16 10:13
PROVIDERS: Internal Medicine; Surgery Vascular Surgery
DX: R07.9 Chest pain, unspecified (principal); R94.39 Abnormal result of other cardiovascular function study; I25.10 Atherosclerotic heart disease of native coronary artery without angina pectoris; I70.211 Atherosclerosis of native arteries of extremities with intermittent claudication, right leg; I70.1 Atherosclerosis of renal artery; I10 Essential (primary) hypertension; I71.4 Abdominal aortic aneurysm, without rupture; E78.5 Hyperlipidemia, unspecified; E78.00 Pure hypercholesterolemia, unspecified; F17.210 Nicotine dependence, cigarettes, uncomplicated; Z98.890 Other specified postprocedural states; Z95.0 Presence of cardiac pacemaker; Z79.899 Other long term (current) drug therapy; Z79.82 Long term (current) use of aspirin; Z88.0 Allergy status to penicillin; Z88.8 Allergy status to other drugs, medicaments and biological substances

== ENCOUNTER 2020-02-06 10:05 | Inpatient (IN) | payer OTHER ==
[~2020-02-06] VITALS: Ht 165.1 cm; Wt 68.0 kg
[2020-02-06] VITALS (8 sets, daily range): BP systolic 93–119; BP diastolic 42–86
[2020-02-07] VITALS (19 sets, daily range): BP systolic 97–110; BP diastolic 39–54
[2020-02-07 06:24] LABS: HEMATOCRIT 35.8 % (42.0-52.0); HEMOGLOBIN 12.1 gm/dL (14.0-18.0); MCH 31.4 pg (26.0-34.0); MCHC 33.8 g/dL (28.0-37.0); MCV 93.1 fL (80.0-100.0); RBC 3.84 mil/uL (4.50-6.00); RDW 13.7 % (10.5-14.5); WBC 9.5 thou/uL (4.0-11.0)
[2020-02-07 08:49] LABS: CREATININE 1.1 mg/dL (0.7-1.3); POTASSIUM 4.6 mmol/L (3.5-5.1)
--- NOTE | 2020-02-07 12:31 | O ---
[facility] [place] [id number] OPERATIVE REPORT Name: MARY NAVARRO Room #: 251-P ADM IN M.R.#: [id number] Admission: 02/06/20 Attend Phys: Spencer Pablo MD Discharge: Date of : 55 Report #: [id number] THIS REPORT FOR: cc: DAVIAN MAR Physician not on staff Spencer Pablo MD ~ CC: Mary Pablo Physician staff DAVIAN MAR DATE OF SERVICE: 02/06/2020 PREOPERATIVE DIAGNOSIS: Abdominal aortic aneurysm. POSTOPERATIVE DIAGNOSIS: Abdominal aortic aneurysm. OPERATION: Stent graft implant for abdominal aortic aneurysm. SURGEON: Spencer Pablo MD and Mary Malhotra MD ANESTHESIA: General. INDICATIONS: The patient is a 64-year-old with a history of bare metal stents for aortoiliac occlusive disease. A leslie-bifurcation had been constructed in the past with bilateral common iliac and a distal abdominal aortic stent. These were not covered however and the patient has an enlarging aneurysm that extends close to the renal artery takeoff. FINDINGS AND TECHNIQUE: After general anesthesia was established, incisions were made in the groins to expose the common femoral arteries. Heparin 10,000 units were given. In each side, the artery was entered with arterial needle followed by guidewire and then 6-Chadian sheath was placed. Through the sheath, the long wire was placed and this was exchanged over a catheter for the Mckenzie wire. With the Mckenzie wire in place on each side, we placed the large dilator and sheath through femoral cut downs. On the left side, the 18-Chadian sheath was placed. On the right side, a 12-Chadian sheath was placed. Through the 18-Chadian sheath, the 28 x 12 x 16 main body component was placed through the right side, the lowest (left) renal artery was identified and identification was used to determine our proximal placement. The graft was opened, constrained somewhat by the previously existing stent in the distal abdominal aorta. Nevertheless, the contralateral gate was [facility] [address] [place] [address] OPERATIVE REPORT Name: MARY NAVARRO Room #: 251-P ADM IN M.R.#: [id number] Admission: 02/06/20 Attend Phys: Spencer Pablo MD Discharge: Date of : 55 Report #: [id number] cannulated. The landmarks of the previous existing stents were used and a pigtail catheter was placed and with this we selected a 12 cm x 12 mm contralateral limb. This was placed satisfactorily in the contralateral gate and extended down to the right common iliac. After this was done, the remainder of the main component was deployed and a sheath arteriogram was done to make sure that we were above the left hypogastric artery. With all of the devices deployed, then the noncompliant balloon was used to fully dilate and set the active fixation hooks on the proximal main component. Limited arteriogram was done to show that we had good position. Noncompliant stents were used to fully dilate the limbs of the graft down to and including the iliac arteries. An arteriogram was done to ascertain good position proximally in the aorta and no endoleak was seen. There was some narrowing of the limb on the patient's right but extending down to the left side and stents were placed to fully open and deploy the main component and the contralateral because of the constraining stent in which it was required to place these devices. After these metal stents were placed, then noncompliant balloons were used in kissing balloon fashion to fully deploy the grafts, 12 mm balloons 2 cm in length were sequentially dilated on each side together to fully deploy the stents and fully distend the stent graft. When this was done, we were satisfied with the position. Bilateral femoral sheath shots were taken to ascertain good position distally. Satisfied with all of these positions of the grafts, the dilators were replaced in the sheaths. Sheaths and dilators were removed and then the guidewires were removed. On each side, the femoral arteriotomy was closed with interrupted Prolene. Protamine was given to reverse the heparin. Hemostasis was ascertained, the wounds were closed in layers. The patient was taken to the recovery area in good condition having tolerated the procedure well. All counts reported as correct. <ELECTRONICALLY SIGNED> By: Spencer Pablo MD 02/07/20 1231 [id number] Spencer Pablo MD /nt
== END 2020-02-07 15:32 | disposition home or self-care (01) | DRG 269 ==
LOC: OR 10:05 → EDSTATUS 10:07 → PRE 10:10 → ICU 11:10 → TBA 11:10 → OR 14:36 → PRE 14:51 → ICU 18:08
PROVIDERS: ADMIT Surgery Vascular Surgery
PROC: B4181ZZ Fluoroscopy of Bilateral Renal Arteries using Low Osmolar Contrast (ICD-10-PCS; principal; 2020-02-06)
PROC: 04V03DZ Restriction of Abdominal Aorta with Intraluminal Device, Percutaneous Approach (ICD-10-PCS; principal; 2020-02-06)
DX: I71.4 Abdominal aortic aneurysm, without rupture (principal); D62 Acute posthemorrhagic anemia; E78.5 Hyperlipidemia, unspecified; I25.10 Atherosclerotic heart disease of native coronary artery without angina pectoris; I73.9 Peripheral vascular disease, unspecified; R73.9 Hyperglycemia, unspecified; Z88.1 Allergy status to other antibiotic agents; Z88.0 Allergy status to penicillin; Z88.8 Allergy status to other drugs, medicaments and biological substances; Z79.82 Long term (current) use of aspirin; Z79.899 Other long term (current) drug therapy
CPT/HCPCS: 10078; 47375; 50010; 50101; 50386; 50455; 52287; 54118; 56524; 56526; 56531; 56668; 56760; 57093; 62110; 62900; 65020; 65040; 70005

== ENCOUNTER → 2020-03-07 | Outpatient (CLI) | payer OTHER ==
[2020-03-07 09:19] LABS: CREATININE 1.1 mg/dL (0.7-1.3)
== END ==
LOC: CAT 08:35 → LAB 11:20 → CAT 13:52
PROVIDERS: Nuclear Medicine Nuclear Cardiology
DX: Z01.818 Encounter for other preprocedural examination (principal); R16.1 Splenomegaly, not elsewhere classified; I71.4 Abdominal aortic aneurysm, without rupture; Z95.828 Presence of other vascular implants and grafts

== ENCOUNTER → 2020-03-11 | Outpatient (CLI) | payer OTHER | LOC: SJCVC 09:07 | PROVIDERS: ATTEND Nuclear Medicine Nuclear Cardiology | DX: I73.9 Peripheral vascular disease, unspecified (principal); I10 Essential (primary) hypertension; I65.29 Occlusion and stenosis of unspecified carotid artery ==

== ENCOUNTER → 2020-06-16 | Outpatient (CLI) | payer OTHER | LOC: RAD 13:05 | PROVIDERS: ATTEND Pediatrics | DX: R04.2 Hemoptysis (principal) ==

== ENCOUNTER → 2020-07-15 | Outpatient (CLI) | payer OTHER | LOC: CAT 13:34 | PROVIDERS: ATTEND Pediatrics | DX: Z12.2 Encounter for screening for malignant neoplasm of respiratory organs (principal); I70.0 Atherosclerosis of aorta; J43.9 Emphysema, unspecified; J98.4 Other disorders of lung; Z87.891 Personal history of nicotine dependence ==

== ENCOUNTER → 2021-05-06 | Outpatient (CLI) | payer OTHER | LOC: RAD 14:42 | PROVIDERS: ATTEND Internal Medicine | DX: R07.89 Other chest pain (principal) ==

== ENCOUNTER → 2021-05-18 | Outpatient (CLI) | payer OTHER | LOC: SJCVCIMAG 07:29 | PROVIDERS: ATTEND Nuclear Medicine Nuclear Cardiology | DX: I65.23 Occlusion and stenosis of bilateral carotid arteries (principal); I71.4 Abdominal aortic aneurysm, without rupture; I77.9 Disorder of arteries and arterioles, unspecified; I10 Essential (primary) hypertension; I73.9 Peripheral vascular disease, unspecified; J43.9 Emphysema, unspecified; G47.33 Obstructive sleep apnea (adult) (pediatric); Z87.891 Personal history of nicotine dependence; Z86.16 Personal history of COVID-19; Z79.82 Long term (current) use of aspirin; Z79.899 Other long term (current) drug therapy; Z88.0 Allergy status to penicillin; Z88.1 Allergy status to other antibiotic agents ==